=== PATIENT | female | born 1960 | race Caucasian/White ===

== ENCOUNTER 2023-11-06 16:15 | Emergency (ER) | payer MEDICAID ==
[~2023-11-06] VITALS: Ht 157.5 cm; Wt 99.8 kg
[2023-11-06 16:19] VITALS: BP 137/94; PULSE 83; RESP 19; TEMP 98.9; O2SAT 98
[2023-11-06] MEDS ORDERED: KETOROLAC 60 MG/2 ML VIAL IM ONE (16:40)
[2023-11-06 16:43] VITALS: O2SAT 98
[2023-11-06] MEDS ORDERED: IBUP-2213 PO (17:07)
[2023-11-06] MEDS ORDERED: CEPH-588 PO (17:07)
== END 2023-11-06 17:22 | disposition home or self-care (01) ==
LOC: MED 16:15
DX: R59.1 Generalized enlarged lymph nodes (principal); K13.0 Diseases of lips; E11.9 Type 2 diabetes mellitus without complications; I10 Essential (primary) hypertension; F17.200 Nicotine dependence, unspecified, uncomplicated; Z79.899 Other long term (current) drug therapy; Z79.4 Long term (current) use of insulin
CPT/HCPCS: 96372; 99283; J1885

== ENCOUNTER 2024-01-04 14:39 | Emergency (ER) | payer MEDICAID ==
[~2024-01-04] VITALS: Ht 157.5 cm; Wt 99.8 kg
[~2024-01-04 14:39] MED LIST: CEPH-588 PO; IBUP-2213 PO
[2024-01-04 14:54] VITALS: BP 116/66; PULSE 75; RESP 18; TEMP 98.8; O2SAT 99
[2024-01-04 17:06] LABS: BASOPHILS # (AUTO) 0.1 K/uL (0.00-0.22); BASOPHILS % (AUTO) 0.9 % (0.0-2.0); EOSINOPHILS # (AUTO) 0.3 K/uL (0-0.4); EOSINOPHILS % (AUTO) 2.7 % (0.0-4.0); HEMATOCRIT 39.8 % (36-48); HEMOGLOBIN 13.8 g/dL (12.0-16.0); LYMPHOCYTES # (AUTO) 4.1 K/uL (2.5-16.5); LYMPHOCYTES % (AUTO) 42.4 % (20.5-51.1); MEAN CORPUSCULAR HEMOGLOBIN 29 pg (27-31); MEAN CORPUSCULAR HGB CONC 35 g/dL (33-37); MEAN CORPUSCULAR VOLUME 82.8 fL (80-94); MONOCYTES # (AUTO) 0.7 K/uL (0.8-1.0); MONOCYTES % (AUTO) 7.4 % (1.7-9.3); NEUTROPHILS # (AUTO) 4.5 K/uL (1.8-7.7); NEUTROPHILS % (AUTO) 46.6 % (42.2-75.2); PLATELET COUNT (AUTO) 298 K/uL (140-450); RED BLOOD CELL COUNT(AUTO) 4.81 MIL/uL (4.20-5.40); RED CELL DISTRIBUTION WIDTH 13.5 % (11.6-13.7); WHITE BLOOD COUNT (AUTO) 9.7 K/uL (4.8-10.8)
[2024-01-04 17:17] LABS: ANION GAP 16.7 (8-16); CALCIUM 10.1 mg/dL (8.5-10.1); CARBON DIOXIDE 24.2 mmol/L (21-32); CREATININE 0.6 mg/dL (0.6-1.3); POTASSIUM 3.9 mmol/L (3.5-5.1)
[2024-01-04 17:20] VITALS: BP 122/72; PULSE 77; RESP 18; TEMP 98.6; O2SAT 99
== END 2024-01-04 18:10 | disposition home or self-care (01) ==
LOC: MED 14:39
DX: K14.8 Other diseases of tongue (principal); H92.03 Otalgia, bilateral; Z79.899 Other long term (current) drug therapy
CPT/HCPCS: 36415; 80048; 82310; 85025; 99283

== ENCOUNTER 2024-04-30 12:40 | Emergency (ER) | payer MEDICAID ==
[~2024-04-30] VITALS: Ht 157.5 cm; Wt 83.9 kg
[2024-04-30 12:49] VITALS: BP 119/79; PULSE 90; RESP 16; TEMP 98; O2SAT 98
[2024-04-30 14:08] LABS: BASOPHILS % (AUTO) 0.5 % (0.0-2.0); EOSINOPHILS # (AUTO) 0.1 K/uL (0-0.4); EOSINOPHILS % (AUTO) 0.8 % (0.0-4.0); HEMATOCRIT 39.4 % (36-48); HEMOGLOBIN 13.5 g/dL (12.0-16.0); LYMPHOCYTES % (AUTO) 32.7 % (20.5-51.1); MEAN CORPUSCULAR HEMOGLOBIN 28 pg (27-31); MEAN CORPUSCULAR HGB CONC 34 g/dL (33-37); MEAN CORPUSCULAR VOLUME 82.3 fL (80-94); MONOCYTES # (AUTO) 0.5 K/uL (0.8-1.0); MONOCYTES % (AUTO) 5.9 % (1.7-9.3); NEUTROPHILS # (AUTO) 5.6 K/uL (1.8-7.7); NEUTROPHILS % (AUTO) 60.1 % (42.2-75.2); PLATELET COUNT (AUTO) 322 K/uL (140-450); RED BLOOD CELL COUNT(AUTO) 4.78 MIL/uL (4.20-5.40); RED CELL DISTRIBUTION WIDTH 14.4 % (11.6-13.7); WHITE BLOOD COUNT (AUTO) 9.3 K/uL (4.8-10.8)
[2024-04-30 14:15] LABS: APPEARANCE,URINE CLEAR (CLEAR); BILIRUBIN,URINE NEGATIVE (NEGATIVE); BLOOD, URINE NEGATIVE (NEGATIVE); COLOR,URINE YELLOW (YELLOW); LEUKOCYTE ESTERASE ,URINE 2+ (NEGATIVE); NITRITE, URINE NEGATIVE (NEGATIVE); PROTEIN,URINE NEGATIVE (NEGATIVE); UGLUCOSE NEGATIVE (NEGATIVE); UROBILINOGEN,URINE 0.2 EU/dL (0.2 - 1)
[2024-04-30 14:25] LABS: ALBUMIN 4.1 g/dL (3.4-5.0); CALCIUM 9.7 mg/dL (8.5-10.1); CARBON DIOXIDE 20.5 mmol/L (21-32); CREATININE 0.8 mg/dL (0.6-1.3); POTASSIUM 3.5 mmol/L (3.5-5.1); TOTAL BILIRUBIN 0.5 mg/dL (0.0-1.0); TOTAL PROTEIN, SERUM 7.6 g/dL (6.4-8.2)
[2024-04-30] MEDS: NACL 0.9% 1,000 ML IV ONE (14:38)
[2024-04-30 14:40] LABS: RBC,URINE 0-5 /HPF (0-5)
[2024-04-30 14:41] LABS: BACTERIA,URINE >30 (MANY) /HPF (None Seen); MUCUS,URINE None Seen /LPF (None Seen); SQUAMOUS EPITHELIAL CELL,UR 4-10 (MOD) /LPF (0-3 (FEW)); TRICHOMONAS,URINE None Seen /HPF (None Seen); YEAST,URINE None Seen /HPF (None Seen)
[2024-04-30] MEDS: LORazepam 1 MG TAB PO ONE (14:57)
[2024-04-30] MEDS: KETOROLAC 30 MG/ML VIAL IVP ONE (15:00)
[2024-04-30] MEDS ORDERED: CIPR500T4 PO (15:45)
[2024-04-30] MEDS ORDERED: BEN10 PO (15:45)
[2024-04-30] MEDS ORDERED: METR-435 PO (15:45)
[2024-04-30 16:00] VITALS: BP 134/80; PULSE 76; RESP 16; TEMP 98; O2SAT 96
== END 2024-04-30 16:00 | disposition home or self-care (01) ==
LOC: MED 12:40
DX: N30.00 Acute cystitis without hematuria (principal); E86.0 Dehydration; E11.9 Type 2 diabetes mellitus without complications; I10 Essential (primary) hypertension; E78.5 Hyperlipidemia, unspecified; F32.9 Major depressive disorder, single episode, unspecified; Z79.1 Long term (current) use of non-steroidal anti-inflammatories (NSAID); Z79.2 Long term (current) use of antibiotics; Z79.899 Other long term (current) drug therapy
CPT/HCPCS: 36415; 74176; 80053; 81001; 83690; 85025; 87086; 87186; 96361; 96374; 99285; J1885; J7030

== ENCOUNTER 2024-06-08 11:48 | Emergency (ER) | payer MEDICAID ==
[~2024-06-08] VITALS: Ht 157.5 cm; Wt 81.6 kg
[~2024-06-08 11:48] MED LIST changes: +BEN10 PO; +CIPR500T4 PO; +METR-435 PO
[2024-06-08 11:58] VITALS: BP 131/71; PULSE 89; RESP 16; TEMP 98.9; O2SAT 97
--- NOTE | 2024-06-08 12:10 | NUR ---
64/F PRESENTED IN ED WITH SON AT BEDSIDE CC OF SHARP R SIDED HEADACHE AND OCCIPITAL AREA X3 DAYS, PT TAKEN PAIN MEDICATION BUT HAS NOT HELP. DENIES BLURRY VISION N/V/D,CP, SOB, TRAUMA. PMHX, DM2, HTN, TARDIVE DYSKENISIA, ANXIETY. NKA
[2024-06-08 13:05] LABS: APPEARANCE,URINE CLEAR (CLEAR); BILIRUBIN,URINE NEGATIVE (NEGATIVE); BLOOD, URINE NEGATIVE (NEGATIVE); COLOR,URINE YELLOW (YELLOW); LEUKOCYTE ESTERASE ,URINE NEGATIVE (NEGATIVE); NITRITE, URINE NEGATIVE (NEGATIVE); PROTEIN,URINE NEGATIVE (NEGATIVE); UGLUCOSE NEGATIVE (NEGATIVE); UROBILINOGEN,URINE 0.2 EU/dL (0.2 - 1)
[2024-06-08 13:22] LABS: BASOPHILS % (AUTO) 0.4 % (0.0-2.0); EOSINOPHILS # (AUTO) 0.1 K/uL (0-0.4); EOSINOPHILS % (AUTO) 0.9 % (0.0-4.0); HEMATOCRIT 36.7 % (36-48); HEMOGLOBIN 12.5 g/dL (12.0-16.0); LYMPHOCYTES # (AUTO) 2.8 K/uL (2.5-16.5); MEAN CORPUSCULAR HEMOGLOBIN 28 pg (27-31); MEAN CORPUSCULAR HGB CONC 34 g/dL (33-37); MEAN CORPUSCULAR VOLUME 83.2 fL (80-94); MONOCYTES # (AUTO) 0.5 K/uL (0.8-1.0); MONOCYTES % (AUTO) 7.3 % (1.7-9.3); NEUTROPHILS # (AUTO) 3.7 K/uL (1.8-7.7); NEUTROPHILS % (AUTO) 52.4 % (42.2-75.2); PLATELET COUNT (AUTO) 283 K/uL (140-450); RED BLOOD CELL COUNT(AUTO) 4.41 MIL/uL (4.20-5.40); RED CELL DISTRIBUTION WIDTH 14.1 % (11.6-13.7); WHITE BLOOD COUNT (AUTO) 7.1 K/uL (4.8-10.8)
[2024-06-08] MEDS: ACETAMINOPHEN EXTRA STRENGTH 500 MG TAB PO ONE (14:03)
[2024-06-08] MEDS: KETOROLAC 30 MG/ML VIAL IM ONE (14:06)
[2024-06-08] MEDS: PROCHLORPERAZINE 10 MG/2 ML VIAL IM ONE (14:11)
[2024-06-08 14:16] LABS: ALBUMIN 3.8 g/dL (3.4-5.0); ANION GAP 13.7 (8-16); CALCIUM 9.4 mg/dL (8.5-10.1); CARBON DIOXIDE 24.1 mmol/L (21-32); CREATININE 0.7 mg/dL (0.6-1.3); POTASSIUM 3.8 mmol/L (3.5-5.1); TOTAL BILIRUBIN 0.4 mg/dL (0.0-1.0); TOTAL PROTEIN, SERUM 6.8 g/dL (6.4-8.2)
[2024-06-08] MEDS ORDERED: IBUP-2213 PO (14:45)
[2024-06-08] MEDS ORDERED: LID5T TP (14:54)
[2024-06-08 15:02] VITALS: BP 126/80; PULSE 67; RESP 16; TEMP 37.16964; O2SAT 99
--- NOTE | 2024-06-08 15:02 | NUR ---
Patient discharged with v/s stable. Written and verbal after care instructions given and explained. Patient alert, oriented and verbalized understanding of instructions. Ambulatory with steady gait. All questions addressed prior to discharge. ID band removed. Patient advised to follow up with PMD. Rx of LIDOCAINE PATHC, IBUPROFEN given. Patient educated on indication of medication including possible reaction and side effects. Opportunity to ask questions provided and answered.
== END 2024-06-08 15:02 | disposition home or self-care (01) ==
LOC: MED 11:48
DX: R51.9 Headache, unspecified (principal); E11.9 Type 2 diabetes mellitus without complications; I10 Essential (primary) hypertension; F41.9 Anxiety disorder, unspecified; F32.9 Major depressive disorder, single episode, unspecified; G47.00 Insomnia, unspecified; Z79.899 Other long term (current) drug therapy
CPT/HCPCS: 36415; 70450; 80053; 81003; 82948; 85025; 93005; 96372; 99285; J0780; J1885